=== PATIENT | female | born 1940 | race Caucasian/White ===

== ENCOUNTER 2020-02-20 09:34 | Outpatient (REF) | payer MEDICARE, SELFPAY ==
[2020-02-20 11:30] LABS: MANUAL DIFF FLAG NO
[2020-02-20 11:40] LABS: Basophils Percent Auto 0.7 % (0-2); Eosinophils Absolute Auto 0.1 X10*3/uL (0.0-0.4); Eosinophils Percent Auto 1.3 % (0-4); Hematocrit 41.4 % (37-47); Hemoglobin 14.2 g/dl (12.0-16.0); Imm Gran Abs Auto 0.02 X10*3/uL (0.00-0.03); Imm Gran Pct Auto 0.4 % (0.0-0.4); Lymphocytes Absolute Auto 1.5 X10*3/uL (1.2-4.9); Lymphocytes Percent Auto 27.5 % (20-40); Mean Corpuscular HGB Conc 34.3 g/dl (31.0-35.0); Mean Corpuscular Hemoglobin 32.1 pg (27.0-33.0); Mean Corpuscular Volume 93.7 fL (80-98); Mean Platelet Volume 10.3 fL (9.4-12.3); Monocytes Absolute Auto 0.5 X10*3/uL (0.1-1.2); Monocytes Percent Auto 8.3 % (2-11); Neutrophils Absolute Auto 3.4 X10*3/uL (2.0-8.3); Neutrophils Percent Auto 61.8 % (45-73); Platelet Count 236 X10*3/uL (160-400); Red Blood Count 4.42 X10*6/uL (4.20-5.50); Red Cell Distribution Width 12.5 % (11.0-16.0); White Blood Count 5.6 X10*3/uL (4.8-10.8)
[2020-02-20 11:53] LABS: Anion Gap 15 (12-20); Blood Urea Nitrogen 12 mg/dL (9-16); Calcium 9.1 mg/dL (8.4-10.2); Carbon Dioxide 23 mmol/L (22-29); Chloride 100 mmol/L (96-108); Estimated Glomerular Filt Rate > 60; Glucose Random 107 mg/dL (60-115); Potassium 4.3 mmol/l (3.3-5.1); Sodium 134 mmol/L (135-145)
[2020-02-20 12:18] LABS: Free T4 (Free Thyroxine) 0.72 ng/dL (0.71-1.85)
[2020-02-20 12:24] LABS: Vitamin B12 194 pg/mL (200-900)
== END 2020-02-20 09:35 | disposition home or self-care (01) ==
LOC: HO.HMGCLDS 09:34
PROVIDERS: PCP Internal Medicine; Visit Provider Internal Medicine
DX: R53.83 Other fatigue (principal); I10 Essential (primary) hypertension; J44.9 Chronic obstructive pulmonary disease, unspecified
CPT/HCPCS: 36415; 80048; 82607; 84439; 84443; 85025

== ENCOUNTER → 2020-03-02 12:39 | Outpatient (BNVA) | payer MEDICARE, SELFPAY | PROVIDERS: PCP Internal Medicine; Referring Provider Internal Medicine; Visit Provider Internal Medicine Cardiovascular Disease | DX: R53.83 Other fatigue (principal); R06.02 Shortness of breath; I25.10 Atherosclerotic heart disease of native coronary artery without angina pectoris; I10 Essential (primary) hypertension; J44.9 Chronic obstructive pulmonary disease, unspecified; E78.5 Hyperlipidemia, unspecified; Z88.8 Allergy status to other drugs, medicaments and biological substances; Z95.5 Presence of coronary angioplasty implant and graft; Z79.899 Other long term (current) drug therapy | CPT/HCPCS: 93005; 99212 ==

== ENCOUNTER 2020-03-15 10:00 | Outpatient (REF) | payer MEDICARE, SELFPAY ==
--- NOTE | 2020-03-15 | PFT_ITS ---
Forced vital capacity, FEV1, [id number] are all normal. MVV slightly decreased. Post bronchodilator therapy, there is no significant change except that MVV is also normal, due to improved effort. Total lung capacity and residual volume normal. Diffusion capacity is slightly decreased. IMPRESSION: Normal pulmonary function test except for slight decrease in diffusion capacity, which may be nonspecific. Resting O2 saturation is normal. For reduced diffusion capacity, clinical correlation is recommended. MD BEENA Staton/MODL / [id number]
== END 2020-03-15 10:01 | disposition home or self-care (01) ==
LOC: HO.RESP 10:00
PROVIDERS: PCP Internal Medicine; Visit Provider Internal Medicine
DX: R06.2 Wheezing (principal); Z77.110 Contact with and (suspected) exposure to air pollution
CPT/HCPCS: 94060; 94727; 94729

== ENCOUNTER 2020-04-13 09:56 | Outpatient (REF) | payer MEDICARE, SELFPAY ==
[2020-04-13 11:53] LABS: Free T4 (Free Thyroxine) 0.83 ng/dL (0.71-1.85); Thyroid Stimulating Hormone 1.55 uIU/mL (0.32-4.0)
== END 2020-04-13 09:57 | disposition home or self-care (01) ==
LOC: HO.HMGCLDS 09:56
PROVIDERS: PCP Internal Medicine; Visit Provider Internal Medicine
DX: E03.9 Hypothyroidism, unspecified (principal)
CPT/HCPCS: 84439; 84443

== ENCOUNTER 2020-06-01 12:05 | Outpatient (REF) | payer MEDICARE, SELFPAY ==
--- NOTE | 2020-06-01 12:11 | XR_ITS ---
EXAMINATION: XR CHEST CLINICAL INFORMATION: SOB. COMPARISON: None TECHNIQUE: 2 views of the chest were obtained. FINDINGS: The lungs are well-expanded with elevated left hemidiaphragm. The heart size and pulmonary vascularity is normal. No gross bony abnormality. XR/XR chest 2V IMPRESSION: Elevated left hemidiaphragm. The lungs are clear.
== END 2020-06-01 12:06 | disposition home or self-care (01) ==
LOC: HO.XRAY 12:05
PROVIDERS: PCP Internal Medicine; Visit Provider Internal Medicine
DX: R06.02 Shortness of breath (principal)
CPT/HCPCS: 71046

== ENCOUNTER → 2020-07-20 07:54 | Outpatient (REF) | payer MEDICARE, SELFPAY ==
--- NOTE | ~2020-07-20 | NM_ITS ---
Myocardial perfusion study Indication: Shortness of breath on exertion with prior LAD stent to evaluate for myocardial ischemia Technique: The patient was brought in for a Lexiscan perfusion study on 07/20/2020. Patient performed low-level exercise and was injected 0.4 mg of Lexiscan intravenously. Within a minute of injection, 25 mCi of sestamibi was given intravenously. Images were obtained using the SPECT gamma camera interlaced with the gating device. Images were obtained in supine position. Resting perfusion study was performed on 07/21/2020. Patient was administered 25 mCi of sestamibi intravenously at rest. Images were then obtained in supine position. Images obtained with and without CT attenuation. Total DLP 50 mGy-cm. Images were processed with the software and compared side to side in short axis, horizontal long axis and vertical long axis views. Findings: The stress perfusion study showed non attenuated images show mildly reduced uptake in the apex of the LV myocardium. Remainder of the LV myocardium is normally perfused. Attenuation corrected images show moderately reduced uptake in the apex of the LV myocardium. The gated study shows normal LV systolic function with calculated LVEF of greater than 70 %. LV cavity is normal in size. The gated study shows normal systolic wall thickening and contraction of segments. Resting study shows no change in perfusion pattern compared to stress perfusion study. Gating at rest reveals normal systolic wall motion with ejection fraction at greater than 70 %. The findings are consistent with normal myocardial perfusion. NM/NM hermes perf SPECT rest & str Impression: 1. Myocardial perfusion imaging study shows normal myocardial perfusion 2. Gated LVEF is greater than 70% 3. Transient ischemic dilatation not present EKG is nondiagnostic for ischemia
--- NOTE | 2020-07-20 08:03 | CA_ITS ---
Acquisition Time: 2020-07-20 08:16:25 Total Exercise Time: 00:02:00 Test Indications: Dyspnea Medications: ATORVASTATIN LEVOTHYROXINE LOSARTAN Protocol: LEXISCAN Max HR: 118 BPM 84% of Pred: 140 BPM Max BP: 146/088 mmHG Max Work Load: 1.0 METS Pharmacological Stress test using Lexiscan while sitting. Pt tolerated well, denies any anginal sx. EKG with isolated PVC and non-diagnostic for ischemia. Nuclear images to follow. Normotensive response to test. Test reviewed with Dr. De La Cruz Referred By: Cheko Cobb Overread By: Anastacia Higgins NP
== END ==
LOC: HO.CARD 07:54
PROVIDERS: Visit Provider Internal Medicine Cardiovascular Disease
DX: R06.02 Shortness of breath (principal); I25.10 Atherosclerotic heart disease of native coronary artery without angina pectoris
CPT/HCPCS: 78452; 93017; A9500; J0280; J2785

== ENCOUNTER → 2020-08-27 11:12 | Outpatient (BNVA) | payer MEDICARE, SELFPAY | PROVIDERS: PCP Internal Medicine; Visit Provider Internal Medicine Pulmonary Disease | DX: J98.6 Disorders of diaphragm (principal); R06.00 Dyspnea, unspecified | CPT/HCPCS: 99202 ==

== ENCOUNTER → 2020-11-09 13:46 | Outpatient (REF) | payer MEDICARE, SELFPAY ==
--- NOTE | 2020-11-09 14:00 | CA_ITS ---
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 The visually estimated ejection fraction is between 55-60%. - There is a highly mobile atrial septum noted. Interatrial shunt cannot be excluded. - There is mild calcification of the aortic valve. - There is moderate posterior mitral annular calcification. There is mild mitral valve regurgitation. Findings Left Ventricle Normal left ventricular cavity size. The left ventricular systolic function is normal. The visually estimated ejection fraction is between 55-60%. There is no evidence of regional wall motion abnormalities. E/E prime ratio is >15, consistent with elevated filling pressures. Evidence suggests grade I (mild) diastolic dysfunction. There is mild septal asymmetric hypertrophy. Right Ventricle Normal right ventricular cavity size and systolic function. Atria Both atria are normal in size. There is a highly mobile atrial septum noted. Interatrial shunt cannot be excluded. Aortic Valve There is mild calcification of the aortic valve. There is no aortic valve stenosis. There is no aortic valve regurgitation. Mitral Valve There is mild anterior mitral leaflet thickening. There is moderate posterior mitral annular calcification. There is mild mitral valve regurgitation. There is no mitral valve stenosis. Pulmonic Valve The pulmonic valve was not well visualized. Tricuspid Valve There is mild tricuspid valve regurgitation. The pulmonary artery systolic pressure is normal. Great Vessels The aortic annulus, sinuses of valsalva, and asc aorta are normal in size. Venous The inferior vena cava was not well visualized. Probably normal size. Pericardium/Pleural There is no evidence of pericardial effusion. Prior Study Comparison Changes noted compared to prior study dated: 06/27/2016. Atrial size seems normal, but this could be related to technical reasons. Measurements 2D Linear Measurements IVSd: 1.07 0.6-0.9/0.6-1.0 cm LVIDd: 3.44 3.9-5.3/4.2-5.9 cm LVIDd Index: 2.15 2.4-3.2/2.2-3.1 cm/m2 LVIDs: 2.18 2.0-3.6 cm LVPWd: 0.81 0.7-1.1 cm Ao Root: 2.80 2.1-3.5 cm LA Diam: 3.40 2.7-3.8/3.0-4.0 cm LAIDs Index: 2.13 1.5-2.3 cm/m2 LV Mass: 114.43 67-162/88-224 g LV Mass Index: 71.52 43-95/49-115 g/m2 LVOT Diam: 2.00 3.0+(-)1.3 cm 2D Systolic Function EF 4C: 58.30 >55% EF 2C: 44.00 >55% EF BiP: 51.00 >55% Mitral Valve MV Pk E: 0.59 MV PK A: 0.96 MV Decel Time: 306.00 E/A: 0.60 E'Lateral: 4.35 E'Medial: 2.94 E/E' Med: 20.00 E/E' Lat: 13.50 PHT: 90.00 MVA PHT: 2.44 Decel Providence: 1.92 Aortic Valve AoV Pk Saleem: 1.45 AoV Pk Grad: 8.00 LVOT LVOT Pk Saleem: 0.78 LVOT Mn Saleem: 0.55 LVOT VTI: 0.17 LVOT Pk Grad: 2.00 LVOT Mn Grad: 1.00 LVOT Diam: 2.00 LVOT Area: 3.14 Diastolic Function MV Pk E: 0.59 MV Pk A: 0.96 E/A: 0.60 E'Medial: 2.94 E/E' Med: 20.00 E' Laterial: 4.35 E/E' Lat: 13.50 Tricuspid Valve TR Pk Saleem: 2.35 TR Pk Grad: 22.00 RA Press: 3.00 RVSP: 25.00 Great Vessels Aorta Ao Root-2D: 2.80 2.0-3.7 cm Ao Asc: 3.40 2.1-3.4 cm Updated in Other Vendor System with Status of Final Mason De La Cruz MD electronically signed on 11/10/2020 8:46:48 AM with status of Final
== END ==
LOC: HO.CARD 13:46
PROVIDERS: Visit Provider Internal Medicine
DX: R06.02 Shortness of breath (principal); I34.0 Nonrheumatic mitral (valve) insufficiency
CPT/HCPCS: 93306

== ENCOUNTER 2020-11-18 14:53 | Outpatient (REF) | payer MEDICARE, SELFPAY ==
[2020-11-18 16:25] LABS: MANUAL DIFF FLAG NO
[2020-11-18 16:33] LABS: Basophils Absolute Auto 0.1 X10*3/uL (0.0-0.2); Basophils Percent Auto 0.8 % (0-2); Eosinophils Absolute Auto 0.1 X10*3/uL (0.0-0.4); Eosinophils Percent Auto 1.3 % (0-4); Hematocrit 39.9 % (37-47); Hemoglobin 13.8 g/dl (12.0-16.0); Imm Gran Abs Auto 0.03 X10*3/uL (0.00-0.03); Imm Gran Pct Auto 0.4 % (0.0-0.4); Lymphocytes Absolute Auto 2.1 X10*3/uL (1.2-4.9); Lymphocytes Percent Auto 26.3 % (20-40); Mean Corpuscular HGB Conc 34.6 g/dl (31.0-35.0); Mean Corpuscular Hemoglobin 32.7 pg (27.0-33.0); Mean Corpuscular Volume 94.5 fL (80-98); Mean Platelet Volume 9.5 fL (9.4-12.3); Monocytes Absolute Auto 0.6 X10*3/uL (0.1-1.2); Monocytes Percent Auto 7.7 % (2-11); Neutrophils Percent Auto 63.5 % (45-73); Platelet Count 246 X10*3/uL (160-400); Red Blood Count 4.22 X10*6/uL (4.20-5.50); Red Cell Distribution Width 12.9 % (11.0-16.0); White Blood Count 7.8 X10*3/uL (4.8-10.8)
[2020-11-18 16:47] LABS: Alanine Aminotransferase 17 U/L (0-31); Albumin Level 4.5 g/dL (3.5-5.0); Alkaline Phosphatase 82 U/L (39-117); Anion Gap 10 (12-20); Aspartate Amino Transferase 25 U/L (5-31); Bilirubin Total 0.5 mg/dL (0.0-1.0); Blood Urea Nitrogen 13 mg/dL (9-16); Calcium 9.4 mg/dL (8.4-10.2); Carbon Dioxide 27 mmol/L (22-29); Chloride 103 mmol/L (96-108); Estimated Glomerular Filt Rate > 60; Glucose Random 93 mg/dL (60-115); Potassium 4.3 mmol/L (3.3-5.1); Sodium 136 mmol/L (135-145); Total Protein 6.5 g/dL (6.5-8.0)
[2020-11-18 17:10] LABS: Free T4 (Free Thyroxine) 0.83 ng/dL (0.71-1.85)
== END 2020-11-18 14:54 | disposition home or self-care (01) ==
LOC: HO.HMGCLDS 14:53
PROVIDERS: PCP Internal Medicine; Visit Provider Internal Medicine
DX: R06.02 Shortness of breath (principal); I10 Essential (primary) hypertension; E03.9 Hypothyroidism, unspecified
CPT/HCPCS: 36415; 80053; 84439; 84443; 85025

== ENCOUNTER → 2021-03-08 10:33 | Outpatient (BNVA) | payer MEDICARE, SELFPAY | PROVIDERS: PCP Internal Medicine; Referring Provider Internal Medicine; Visit Provider Internal Medicine Cardiovascular Disease | DX: I25.10 Atherosclerotic heart disease of native coronary artery without angina pectoris (principal); R06.00 Dyspnea, unspecified | CPT/HCPCS: 93005; 99212 ==

== ENCOUNTER 2021-03-30 15:18 | Outpatient (REF) | payer MEDICARE, SELFPAY | END 2021-03-30 15:19 | disposition home or self-care (01) | LOC: HO.US 15:18 | PROVIDERS: PCP Internal Medicine; Visit Provider Internal Medicine | DX: Z13.89 Encounter for screening for other disorder (principal) ==

== ENCOUNTER 2021-04-19 14:14 | Outpatient (REF) | payer MEDICARE, SELFPAY ==
--- NOTE | ~2021-04-19 | US_ITS ---
EXAMINATION: US RETROPERITONEAL COMPLETE (RENAL) CLINICAL INFORMATION: [Back pain. Rule out left renal lesion. COMPARISON: None TECHNIQUE: Real-time imaging of the kidneys and bladder. Technically difficult study secondary to bowel gas, body habitus. FINDINGS: RIGHT KIDNEY: 9.8 x 4.8 x 4.0 cm (SAG x AP x TRV). The kidney is normal in size, contour, and echogenicity. Renal cortical thickness is normal. No calculi or focal parenchymal lesions. No hydronephrosis. LEFT KIDNEY: 9.3 x 4.2 x 4.8 cm (SAG x AP x TRV). The kidney is normal in size, contour, and echogenicity. Renal cortical thickness is normal. 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 No calculi or focal parenchymal lesions. No hydronephrosis. BLADDER: Well distended and normal. Bilateral ureteral jets are demonstrated. Prevoid bladder volume is 485 mL. Postvoid bladder volume is 220 mL. US/US retroperitoneal comp IMPRESSION: Normal renal ultrasound. Large 220 mL post void bladder residual.
== END 2021-04-19 14:15 | disposition home or self-care (01) ==
LOC: HO.US 14:14
PROVIDERS: Visit Provider Internal Medicine
DX: R06.02 Shortness of breath (principal); M54.50 Low back pain, unspecified
CPT/HCPCS: 76770

== ENCOUNTER 2021-05-27 07:01 | Outpatient (REF) | payer MEDICARE, SELFPAY ==
[2021-05-27 11:12] LABS: MANUAL DIFF FLAG NO
[2021-05-27 11:19] LABS: Basophils Absolute Auto 0.1 X10*3/uL (0.0-0.2); Basophils Percent Auto 1.1 % (0-2); Eosinophils Absolute Auto 0.1 X10*3/uL (0.0-0.4); Eosinophils Percent Auto 1.9 % (0-4); Hematocrit 41.8 % (37.0-47.0); Imm Gran Abs Auto 0.02 X10*3/uL (0.00-0.03); Imm Gran Pct Auto 0.4 % (0.0-0.4); Lymphocytes Absolute Auto 1.6 X10*3/uL (1.2-4.9); Lymphocytes Percent Auto 33.8 % (20-40); Mean Corpuscular HGB Conc 33.5 g/dl (31.0-35.0); Mean Corpuscular Volume 95.7 fL (80.0-98.0); Mean Platelet Volume 10.1 fL (9.4-12.3); Monocytes Absolute Auto 0.4 X10*3/uL (0.1-1.2); Monocytes Percent Auto 9.4 % (2-11); Neutrophils Absolute Auto 2.5 x10*3/uL (2.0-8.3); Neutrophils Percent Auto 53.4 % (45-73); Platelet Count 240 X10*3/uL (160-400); Red Blood Count 4.37 X10*6/uL (4.20-5.50); Red Cell Distribution Width 12.7 % (11.0-16.0); White Blood Count 4.7 X10*3/uL (4.8-10.8)
[2021-05-27 11:35] LABS: Alanine Aminotransferase 18 U/L (0-31); Albumin Level 4.1 g/dL (3.5-5.0); Alkaline Phosphatase 73 U/L (39-117); Anion Gap 12 (12-20); Aspartate Amino Transferase 21 U/L (5-31); Bilirubin Total 0.9 mg/dL (0.0-1.0); Blood Urea Nitrogen 15 mg/dL (9-16); Calcium 9.5 mg/dL (8.4-10.2); Carbon Dioxide 26 mmol/L (22-29); Chloride 102 mmol/L (96-108); Cholesterol 158 mg/dL; Estimated Glomerular Filt Rate > 60; Glucose Fasting 93 mg/dL (60-99); HDL Cholesterol 77 mg/dL; LDL Cholesterol Calculated 67 mg/dl; Potassium 4.6 mmol/L (3.3-5.1); Sodium 135 mmol/L (135-145); Total Protein 6.2 g/dL (6.5-8.0); Triglycerides 72 mg/dL
[2021-05-27 11:59] LABS: Thyroid Stimulating Hormone 2.39 uIU/mL (0.32-4.0)
== END 2021-05-27 07:02 | disposition home or self-care (01) ==
LOC: HO.HMGCLDS 07:01
PROVIDERS: Visit Provider Internal Medicine
DX: E03.9 Hypothyroidism, unspecified (principal); E78.00 Pure hypercholesterolemia, unspecified; I25.10 Atherosclerotic heart disease of native coronary artery without angina pectoris; I10 Essential (primary) hypertension; R06.02 Shortness of breath
CPT/HCPCS: 36415; 80053; 80061; 84439; 84443; 85025

== ENCOUNTER 2021-10-19 10:48 | Outpatient (REF) | payer MEDICARE, SELFPAY ==
[2021-10-19 13:43] LABS: MANUAL DIFF FLAG NO
[2021-10-19 13:57] LABS: Basophils Absolute Auto 0.1 X10*3/uL (0.0-0.2); Basophils Percent Auto 1.1 % (0-2); Eosinophils Absolute Auto 0.1 X10*3/uL (0.0-0.4); Eosinophils Percent Auto 1.6 % (0-4); Hematocrit 39.8 % (37.0-47.0); Hemoglobin 13.7 g/dl (12.0-16.0); Imm Gran Abs Auto 0.02 X10*3/uL (0.00-0.03); Imm Gran Pct Auto 0.3 % (0.0-0.4); Lymphocytes Absolute Auto 1.6 X10*3/uL (1.2-4.9); Lymphocytes Percent Auto 26.4 % (20-40); Mean Corpuscular HGB Conc 34.4 g/dl (31.0-35.0); Mean Corpuscular Hemoglobin 32.5 pg (27.0-33.0); Mean Corpuscular Volume 94.5 fL (80.0-98.0); Mean Platelet Volume 10.1 fL (9.4-12.3); Monocytes Absolute Auto 0.5 X10*3/uL (0.1-1.2); Monocytes Percent Auto 8.5 % (2-11); Neutrophils Absolute Auto 3.8 x10*3/uL (2.0-8.3); Neutrophils Percent Auto 62.1 % (45-73); Platelet Count 232 X10*3/uL (160-400); Red Blood Count 4.21 X10*6/uL (4.20-5.50); White Blood Count 6.1 X10*3/uL (4.8-10.8)
[2021-10-19 14:21] LABS: Alanine Aminotransferase 20 U/L (0-31); Albumin Level 4.4 g/dL (3.5-5.0); Alkaline Phosphatase 82 U/L (39-117); Anion Gap 12 (12-20); Aspartate Amino Transferase 27 U/L (5-31); Bilirubin Total 0.8 mg/dL (0.0-1.0); Blood Urea Nitrogen 15 mg/dL (9-16); Calcium 9.2 mg/dL (8.4-10.2); Carbon Dioxide 26 mmol/L (22-29); Chloride 102 mmol/L (96-108); Estimated Glomerular Filt Rate > 60; Glucose Random 101 mg/dL (60-115); Potassium 4.7 mmol/L (3.3-5.1); Sodium 135 mmol/L (135-145); Total Protein 6.4 g/dL (6.5-8.0)
[2021-10-19 14:40] LABS: Vitamin B12 343 pg/mL (200-900)
[2021-10-19 14:46] LABS: Free T4 (Free Thyroxine) 0.84 ng/dL (0.71-1.85); Thyroid Stimulating Hormone 1.46 uIU/mL (0.32-4.0)
== END 2021-10-19 10:49 | disposition home or self-care (01) ==
LOC: HO.HMGCLDS 10:48
PROVIDERS: PCP Internal Medicine; Visit Provider Internal Medicine
DX: I25.10 Atherosclerotic heart disease of native coronary artery without angina pectoris (principal); I10 Essential (primary) hypertension; E03.9 Hypothyroidism, unspecified; E53.8 Deficiency of other specified B group vitamins
CPT/HCPCS: 36415; 80053; 82607; 84439; 84443; 85025

== ENCOUNTER 2024-12-16 10:44 | Outpatient (AMB) | payer MEDICARE, SELFPAY ==
--- OUTSIDE RECORDS SUMMARY | 2024-12-13 23:59 | XMS_ITS | Continuity of Care Document ---
Author Organization [facility] Address [address] [place] [address]- Care Team Providers Care Core Carrier Name Role Phone William KENO CLERK, Jackeline Primary Care Physician Encounter [facility] Date(s): 11/13/24 - 12/13/24 [facility] [address] [place] [id number] Encounter Type: Triage Allergies, Adverse Reactions, Alerts No Known Medication Allergies Immunizations Given and Recorded Vaccine Date Status Refusal Reason influenza virus vaccine, inactivated 1 05/23/24 Gi mirella influenza virus vaccine, inactivated 2 06/11/23 Gi mirella SARS-CoV-2(COVID-19)mRNA-LNP vac([id number]) 02/20/23 Recorded [id number] 12y+ bivalent booster vax 06/08/22 Recorded Influenza Virus Vaccine (oldterm) 01/2022 Recorde d SARS-CoV-2 mRNA ([id number]-[id number]) vax 08/29/21 Recorded SARS-CoV-2 (COVID-19) mRNA BNT-162b2 vac 02/08/21 Recorded SARS-CoV-2 (COVID-19) mRNA BNT-162b2 vac 08/03/20 Recorded SARS-CoV-2 (COVID-19) mRNA BNT-162b2 vac 07/13/20 Recorded pneumococcal 23-valent vaccine 02/19/17 Recorded 1Result Comment: Flu High [facility] [id number] 2Result Comment: [id number] Medications amLODIPine 10 mg oral tablet 10 mg, 1, tablet, By Mouth, Daily, # 90 tablet, Refills 3, Tot. Refills 3, Maintenance, 11/28/24 2:54:00 PM EDT, Route to Pharmacy Electronically, [facility], Partial fill upon patient requestif the prescription is for a schedule II opioid drug., 155, cm, 11/28/24 14:15:00 EDT, Height, 59.3, kg, 05/20/24 12:35:00 EST, Dry Weight Start Date: 11/28/24 Stop Date: 11/23/25 Status: Ordered Quantity: 90.0 Unit: tablet Repeat number: 4 aspirin 81 mg oral delayed release tablet 81 mg, By Mouth, Daily, Refills 0, Maintenance, 02/15/17 9:38:07 AM EDT Start Date: 02/15/17 Status: Ordered Repeat number: 1 atorvastatin 40 mg oral tablet 1 tablet, By Mouth, Daily, # 90 tablet, 1 Refills, Maintenance, 07/12/24 10:50:00 AM EDT, [facility], 155, cm, 05/23/24 14:42:00 EST, Height, 59.3, kg, 05/20/24 12:35:00 EST, Dry Weight Start Date: 07/12/24 Status: Ordered Quantity: 90.0 Unit: tablet Repeat number: 1 carvedilol 25 mg oral tablet 1, tablet, By Mouth, 2 times a day, # 180 tablet, Refills 0, Maintenance, 11/21/24 8:39:00 AM EDT, Route to Pharmacy Electronically, [facility], 155, cm, 11/13/24 13:47:00 EDT, Height, 59.3, kg, 05/20/24 12:35:00 EST, Dry Weight Start Date: 11/21/24 Status: Ordered Quantity: 180.0 Unit: tablet Repeat number: 1 doxazosin 2 mg oral tablet 1, tablet, By Mouth, Daily, # 90 tablet, Refills 3, Maintenance, 12/09/24 8:48:00 AM EDT, Route to Pharmacy Electronically, [facility], 155, cm, 11/28/24 14:15:00 EDT, Height, 59.3, kg, 05/20/24 12:35:00 EST, Dry Weight Start Date: 12/09/24 Status: Ordered Quantity: 90.0 Unit: tablet Repeat number: 1 Flonase Allergy Relief 50 mcg/inh nasal spray = 50 mcg, Nares, Both, Daily, # 16 Gm, 0 Refills, Maintenance, 03/02/23 11:26:00 AM EDT, [id number], Partial fill upon patient request if the prescription is for a schedule II opioid drug.,154.94, cm, 03/02/23 11:04:00 EDT, Height Start Date: 03/02/23 Status: Ordered Quantity: 16.0 Unit: g Repeat number: 1 levothyroxine 0.025 mg oral tablet 1 tablet, By Mouth, Daily, # 90 tablet, 3 Refills, Maintenance, 07/25/24 8:15:00 AM EDT, [facility], 155, cm, 07/15/24 10:24:00 EDT, Height, 59.3, kg, 05/20/24 12:35:00 EST, Dry Weight Start Date: 07/25/24 Status: Ordered Quantity: 90.0 Unit: tablet Repeat number: 1 losartan 100 mg oral tablet 1 tablet, By Mouth, Daily, # 90 tablet, 3 Refills, Maintenance, 05/30/24 2:20:00 PM EST, [facility], 155, cm, 05/23/24 14:42:00 EST, Height, 59.3, kg, 05/20/24 12:35:00 EST, Dry Weight Start Date: 05/30/24 Status: Ordered Quantity: 90.0 Unit: tablet Repeat number: 4 Miscellaneous Rx 0 Refills, 90 tablet, 0 Refill(s), 11/13/24 1:46:00 PM EDT Start Date: 11/13/24 Status: Ordered Repeat number: 1 potassium chloride 20 mEq oral tablet, extended release 1 tablet = 20 mEq, By Mouth, Daily, # 30 tablet, 0 Refills, Maintenance, 05/20/24 12:45:00 PM EST, ER Tablet, Partial fill upon patient request if the prescription is for a schedule II opioid drug. Start Date: 05/20/24 Status: Ordered Quantity: 30.0 Unit: tablet Repeat number: 1 sertraline 50 mg oral tablet See Instructions, take half tablet daily in AM x 7 days, then begin taking full tablet daily, # 30 tablet, 1 Refills, Maintenance, 05/23/24 2:22:00 PM EST, Tablet, [id number], Partial fill upon patient request if the prescription is for a schedule II opioid drug., 155, cm, 05/23/24 14:10:00 EST, Height, 59.3, kg, 05/20/24 12:35:00 EST, Dry Weight Start Date: 05/23/24 Status: Ordered Quantity: 30.0 Unit: tablet Repeat number: 2 triamcinolone 0.1% topical cream 80 Gm, 0 Refill(s), APPLY 1 APPLICATION OF CREAM EXTERNALLY TWICE DAILY FOR 14 DAYS, 0 Refills, 11/13/24 1:46:00 PM EDT, Partial fill upon patient request if the prescription is for a schedule II opioid drug. Start Date: 11/13/24 Status: Ordered Repeat number: 1 Vitamin D3 2000 intl units oral capsule 1 capsule = 50 mcg, By Mouth, Daily, 0 Refills, Maintenance, 10/02/22 1:11:00 PM EDT, Partial fill upon patient request if the prescription is for a schedule II opioid drug. 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 Confirmed Active Social History Social History Type Response Smoking Status Never (less than 100 in lifetime) entered on: 05/20/24 Sex Sex Representation Female (finding) Patient Care team information Care Team Personnel Name: Jackeline Thomas NP Position: [facility] PCO Associate Professional Member Role: PCP Address: [address] [place] [id number] Telecom: Name: Yisel De Jesus RN Position: [facility] AMB Nurse Member Role: Primary Care Nurse Care Team Related Persons Name: BRIAN SIMMONS Name: KESHAWN SIMMONS Insurance Providers Guarantor name: LALO SIMMONS Health Plan Information #: 1 Payer: MEDICARE B Payer Identifier: JACQUELINE Member Number: [id number] Group Number: NA Subscriber Identifier: [id number] Relationship to Subscriber: self Coverage Type: NA Coverage Verification Date: NA Telecom: NA Address: Health Plan Information #: 2 Payer: [employer] SECONDARY ONLY Payer Identifier: JACQUELINE Member Number: [id number] Group Number: [id number] Subscriber Identifier: [id number] Relationship to Subscriber: self Coverage Type: MEDICARE Coverage Verification Date: JACQUELINE Telecom: JACQUELINE Address:
--- OUTSIDE RECORDS SUMMARY | 2024-12-16 12:11 | XMS_ITS | Encounter Summary ---
Author Organization [facility] Address [address] [place] [address] [place] [phone] Phone Care Team Providers Care Electric Motor Repair Supervisor Name Role Phone Jackeline Thomas NP Primary Care Provider [phone] Encounter Details Date Type Department Care Team (Late st Contact Info) Description 10/29/2022 Procedure Pass [facility] CT Imaging, [place] [address] [place] [address] Social History Tobacco Use Types Packs/Day Years Used Date Smoking Tobacco: Never Smokeless Tobacco: Never Education Answer Date Recorded Are you interested in more education? Not on albert e 08/26/2022 Are you concerned about learning? Not on file 08/26/2022 No 08/26/2022 No 08/26/2022 Digital Access Answer Date Recorded No 09/23/2022 No 09/23/2022 No 09/23/2022 Reliable internet access at home? Not on file 09/23/2022 Device with a working camera? Not on file Comments Unknown Sex and Gender Information Value Date Recorded Sex Assigned at Female 02/13/2023 11:15 AM EDT Legal Sex Female 9:39 AM EST Gender Identity Female 02/13/2023 11:15 AM EDT Sexual Orientation Asexual 02/13/2023 11 :15 AM EDT documented as of this encounter Plan of Treatment Not on file documented as of this encounter Visit Diagnoses Not on filedocumented in this encounter Additional Health Concerns Assessment Noted Time PHQ-2 Depression Total Score: 0 09/15/19 23 2:26 PM EDT documented as of this encounter Care Teams Electric Motor Repair Supervisor Relationship Specialty Start Date End Date Jackeline Thomas NP [address] [place] [address] PCP - General Nurse Practitioner 09/14/22 documented as of this encounter Additional Source Comments The information contained in this document represents components of the legal health record. It is not the complete legal health record.[facility]
== END 2024-12-16 10:51 | disposition home or self-care (01) ==
LOC: HO.HMGAL 10:44
PROVIDERS: PCP Internal Medicine; Visit Provider Registered Nurse Emergency
DX: J30.89 Other allergic rhinitis (principal)
CPT/HCPCS: 95117; 95165

== ENCOUNTER 2025-01-21 10:12 | Outpatient (AMB) | payer MEDICARE, SELFPAY ==
--- OUTSIDE RECORDS SUMMARY | 2025-01-21 12:29 | XMS_ITS | Encounter Summary ---
Author Organization [facility] Address [address] [place] [id number] Phone Care Team Providers Care Washer Repairman Name Role Phone Joseph Sage MD Primary Care Provider Jackeline Thomas NP Primary Care Provider [phone] Encounter Details Date Type Department Care Team (Late st Contact Info) Description 06/09/2022 Procedure Pass [facility] EKG [address] [place] [address] Social History Tobacco Use Types Packs/Day Years Used Date Smoking Tobacco: Never Smokeless Tobacco: Never Comments Unknown Sex and Gender Information Value Date Recorded Sex Assigned at Female 02/13/2023 11:15 AM EDT Legal Sex Female 9:39 AM EST Gender Identity Female 02/13/2023 11:15 AM EDT Sexual Orientation Asexual 02/13/2023 11 :15 AM EDT documented as of this encounter Plan of Treatment Not on file documented as of this encounter Visit Diagnoses Not on filedocumented in this encounter Care Teams Washer Repairman Relationship Specialty Start Date End Date Joseph Sage MD [address] [place] [address] [place] [address] PCP - General Internal Medicine 04/10/22 09/13/22 Jackeline Thomas NP [address] [place] [address] PCP - General Nurse Practitioner 09/14/22 documented as of this encounter Additional Source Comments The information contained in this document represents components of the legal health record. It is not the complete legal health record.[facility]
--- OUTSIDE RECORDS SUMMARY | 2025-01-21 12:29 | XMS_ITS | Clinical Summary ---
Author Organization [facility] Address [address] [place] [phone] Phone Care Team Providers Care Poultry Husbandry Worker Name Role Phone Jackeline Thomas NP Primary Care Provider Allergies No known active allergies Medications verapamiL (CALAN-SR) 120 MG CR tablet 2 (two) times a day. 03/21/2022 Active atorvastatin (LIPITOR) 40 MG tablet 02/26/2022 Active levothyroxine (SYNTHROID,LEVO THROID) 25 MCG tablet 02/15/2022 Active aspirin 81 MG EC tablet Take 81 mg by mouth daily. Active doxazosin (CARDURA) 2 MG tablet Take 2 mg by mouth nightly at bedtime. Active cholecalciferol (VITAMIN D3) 2,000 unit capsule Take by mouth daily. Active fluticasone propionate (FLONASE) 50 mcg/actuation nasal spray use 1 spray(s) in each nostril once daily 03/02/2023 Active losartan (COZAAR) 100 MG tablet 03/03/2023 Active Active Problems Problem Noted Date Diagnosed Date Autonomic dysfunction 04/10/2023 Hyperventilation syndrome 03/05/2023 Social History Tobacco Use Types Packs/Day Years Used Date Smoking Tobacco: Never Smokeless Tobacco: Never Tobacco Cessation:Counseling Given: Not Answered Education Answer Date Recorded Are you interested [...] Orientation Asexual 02/13/2023 11 :15 AM EDT Last Filed Vital Signs Vital Sign Reading Time Taken Comments Blood Pressure 168/94 01/23/2023 3:22 PM EDT Pulse 77 01/23/2023 3:22 PM EDT Temperature 36.1 C (97 F) 03/26/2023 2:47 PM EST Respiratory Rate 18 01/23/2023 3:22 PM EDT Oxygen Saturation 98% 01/23/2023 3:22 PM EDT Inhaled Oxygen Concentration - - Weight 59 kg (130 lb) 01/23/2023 3:22 PM EDT Height 154.9 cm (5' 1 ) 01/23/2023 3:22 PM EDT Body Mass Index 24.56 01/23/2023 3:22 PM EDT Plan of Treatment Health Maintenance Due Date Last Done Comments Adult Td,Tdap Booster 1940 ZOSTER VACCINES (1 of 2) 09/14/1989 OSTEOPOROSIS SCREENING INITIAL (ONE-TIME) 09/14/2004 RSV VACCINE (1 - 1-dose 75+ series) 09/14/2014 PNEUMOCOCCAL VACCINES (50+ years) (2 of 2 - PCV) 02/19/2018 02/19/2017 CREATININE LEVEL 2023 09/14/2022, 04/11/2022 POTASSIUM LEVEL 2023 09/14/2022, 04/11/2022 TSH LEVEL 2023 09/14/2022, 04/11/2022 DEPRESSION SCREENING 01/24/2024 01/23/2023 INFLUENZA VACCINE (#1) 2024 COVID-19 VACCINE ( season) 2024 02/20/2023, 06/08/2022, 08/29/2021, Additional history exists HEPATITIS A VACCINES Aged Out No long er eligible based on patient's age to complete this topic HIB VACCINES Aged Out No longer eligi ble based on patient's age to complete this topic MENINGOCOCCAL VACCINES (ACWY) Aged Out No longer eligible based on patient's age to complete this topic MENINGOCOCCAL VACCINES (B) Aged Out N o longer eligible based on patient's age to complete this topic Medical Devices Not on file Procedures Procedure Name Priority Date/Time Associated Diagnosis Comments TSH Routine 09/14/2022 4:37 PM EDT Dyspnea on exertion COMPREHENSIVE METABOLIC PANEL Routine 09/14/2022 4:37 PM EDT Dyspnea on exertion from Last 3 Months or Most Recently Relevant to Health Maintenance Results * (ABNORMAL) Comprehensive metabolic panel (09/14/2022 4:37 PM EDT) SODIUM 135(L) 136 - 145 mmol/L [facility] POTASSIUM 4.4 3.4 - 5.1 mmol/L [facility] CHLORIDE 100 98 - 107 mmol/L [facility] CO2 23 22 - 31 mmol/L [facility] BUN 13 6 - 23 mg/dL [facility] CREATININE 0.80 0.50 - 1.20 mg/dL [facility] GLUCOSE 96 70 - 100 mg/dL [facility] ALBUMIN 4.6 3.5 - 5.2 g/dL [facility] TOTAL PROTEIN 6.6 6.4 - 8.3 g/dL [facility] CALCIUM 9.6 8.8 - 10.7 mg/dL [facility] ALKALINE PHOSPHATASE 77 35 - 130 U/L [facility] TOTAL BILIRUBIN 0.6 0.0 - 1.0 mg/dL [facility] AST 25 10 - 50 U/L [facility] ALT 16 10 - 50 U/L [facility] GLOBULIN 2.0(L) 2.2 - 4.2 g/dL [facility] EGFR 74 >59 mL/min/1. 73m2 [facility] Comment:Estimated glomerular filtration rate calculated using the CKD-EPI refit equation. ANION GAP 12 7 - 17 mmol/L [facility] 09/14/2022 4:37 PM EDT 09/14/2022 4:57 PM EDT us Joshuamarie Ortiz MD LAB BLOOD ORDERABLES Fin al Result [facility] [address] [place] [address] * TSH (09/14/2022 4:37 PM EDT) TSH 2.11 0.50 - 5.70 uIU/mL [facility] 09/14/2022 4:37 PM EDT 09/14/2022 4:57 PM EDT Joshuamichelle Ortiz MD LAB BLOOD ORDERABLES Fin al Result Performing Organization Address [facility] Co de Phone Number [facility] [address] [place] [address] from Last 3 Months or Most Recently Relevant to Health Maintenance Insurance MEDICARE PART A & B [facility] MEDICARE SUPPLEMENT MEDICARE PART A & B [id number] [place] [address] MEDICARE SUPPLEMENT MEDICARE PART A & B [facility] MEDICARE SUPPLEMENT MEDICARE PART A & B [facility] MEDICARE SUPPLEMENT MEDICARE PART A & B [facility] MEDICARE SUPPLEMENT MEDICARE PART A & B [facility] MEDICARE SUPPLEMENT Care Teams Poultry Husbandry Worker Relationship Specialty Start Date End Date Jackeline Thomas NP [address] [place] [address] PCP - General Nurse Practitioner 09/14/22 Additional Source Comments The information contained in this document represents components of the legal health record. It is not the complete legal health record.[facility]
--- OUTSIDE RECORDS SUMMARY | 2025-01-21 12:29 | XMS_ITS | Encounter Summary ---
Author Organization [facility] Address [address] [place] [address] Phone Care Team Providers Care Client Service Representative Name Role Phone Joseph Sage MD Primary Care Provider Jackeline Thomas NP Primary Care Provider [phone] Encounter Details Date Type Department Care Team ([facility] st Contact Info) Description 04/11/2022 Procedure Pass [facility] Echocardiography [address] [place] [address] Social History Tobacco Use Types Packs/Day Years [...] on filedocumented in this encounter Care Teams Client Service Representative Relationship Specialty Start Date End Date Joseph Sage MD [address] [place] [address] [place] [address] PCP - General Internal Medicine 04/10/22 09/13/22 Jackeline Thomas NP [address] [place] [address] PCP - General Nurse Practitioner 5/18/23 documented as of this encounter Additional Source Comments The information contained in this document represents components of the legal health record. It is not the complete legal health record.[facility]
--- OUTSIDE RECORDS SUMMARY | 2025-01-21 12:29 | XMS_ITS | Encounter Summary ---
Author Organization [facility] Address [address] [place] [address] [place] [address] Phone Care Team Providers Care Well Cleaner Name Role Phone Jackeline Thomas NP Primary Care Provider Encounter Details Date Type Department Care Team (Late st Contact Info) Description 10/29/2022 Procedure Pass [facility] CT Imaging, [place] [address] [place] [address] Social History Tobacco Use Types Packs/Day Years [...] documented as of this encounter Care Teams Well Cleaner Relationship Specialty Start Date End Date Jackeline Thomas NP [address] [place] [address] PCP - General Nurse Practitioner 09/14/22 documented as of this encounter Additional Source Comments The information contained in this document represents components of the legal health record. It is not the complete legal health record.[facility]
--- OUTSIDE RECORDS SUMMARY | 2025-01-21 12:29 | XMS_ITS | Encounter Summary ---
Author Organization [facility] Address [address] [place] [address] Phone Care Team Providers Care Audio/Video Engineer Name Role Phone Jackeline Thomas NP Primary Care Provider Encounter Details Date Type Department Care Team (Late st Contact Info) Description 01/23/2023 Procedure Pass [facility] Echocardiography [address] [place] [address] Social History Tobacco Use Types Packs/Day Years [...] Noted Time PHQ-2 Depression Total Score: 0 01/24/20 23 3:22 PM EDT documented as of this encounter Care Teams Audio/Video Engineer Relationship Specialty Start Date End Date Jackeline Thomas NP [address] [place] [address] PCP - General Nurse Practitioner 09/14/22 documented as of this encounter Additional Source Comments The information contained in this document represents components of the legal health record. It is not the complete legal health record.[facility]
== END 2025-01-21 10:24 | disposition home or self-care (01) ==
LOC: HO.HMGAL 10:12
PROVIDERS: PCP Nurse Practitioner Family; Visit Provider Registered Nurse Emergency
DX: J30.89 Other allergic rhinitis (principal)
CPT/HCPCS: 95117; 95165

== ENCOUNTER 2025-02-04 10:49 | Outpatient (AMB) | payer MEDICARE, SELFPAY | END 2025-02-04 10:50 | disposition home or self-care (01) | LOC: HO.HMGAL 10:49 | PROVIDERS: PCP Nurse Practitioner Family; Visit Provider Registered Nurse Emergency | DX: J30.89 Other allergic rhinitis (principal) | CPT/HCPCS: 95117; 95165 ==

== ENCOUNTER 2025-02-25 13:39 | Outpatient (AMB) | payer MEDICARE, SELFPAY ==
--- OUTSIDE RECORDS SUMMARY | 2025-02-25 17:24 | XMS_ITS | Encounter Summary ---
Author Organization [facility] Address [address] [place] [address] Phone Care Team Providers Care Cuff Matcher Name Role Phone Jackeline Thomas NP Primary Care Provider Encounter Details Date Type Department Care Team (Late st Contact Info) Description 01/23/2023 Procedure Pass [facility] Echocardiography [address] [place] [address] Social History Tobacco Use Types Packs/Day Years [...] documented as of this encounter Care Teams Cuff Matcher Relationship Specialty Start Date End Date Jackeline Thomas NP [address] [place] [address] PCP - General Nurse Practitioner 09/14/22 documented as of this encounter Additional Source Comments The information contained in this document represents components of the legal health record. It is not the complete legal health record.[facility]
--- OUTSIDE RECORDS SUMMARY | 2025-02-25 17:24 | XMS_ITS | Encounter Summary ---
Author Organization [facility] Address [address] [place] [address] Phone Care Team Providers Care Ship Construction Teacher Name Role Phone Joseph Sage MD Primary Care Provider Jackeline Thomas NP Primary Care Provider [phone] Encounter Details Date Type Department Care Team (Late st Contact Info) Description 06/09/2022 Procedure Pass [facility] EKG [address] [place] [address] Social History Tobacco Use Types Packs/Day Years [...] on filedocumented in this encounter Care Teams Ship Construction Teacher Relationship Specialty Start Date End Date Joseph Sage MD [address] [place] [address] [place] [address] PCP - General Internal Medicine 04/10/22 09/13/22 Jackeline Thomas NP [address] [place] [address] PCP - General Nurse Practitioner 09/14/22 documented as of this encounter Additional Source Comments The information contained in this document represents components of the legal health record. It is not the complete legal health record.[facility]
--- OUTSIDE RECORDS SUMMARY | 2025-02-25 17:24 | XMS_ITS | Encounter Summary ---
Author Organization [facility] Address [address] [place] [address] Phone Care Team Providers Care Inspector Repairer Sandstone Name Role Phone Joseph Sage MD Primary Care Provider Jackeline Thomas NP Primary Care Provider [phone] Encounter Details Date Type Department Care Team ([facility] st Contact Info) Description 04/11/2022 Procedure Pass [facility] Echocardiography [address] [place] [address] Social History Tobacco Use Types Packs/Day Years [...] on filedocumented in this encounter Care Teams Inspector Repairer Sandstone Relationship Specialty Start Date End Date Joseph Sage MD [address] [place] [address] [place] [address] PCP - General Internal Medicine 04/10/22 09/13/22 Jackeline Thomas NP [address] [place] [address] PCP - General Nurse Practitioner 5/18/23 documented as of this encounter Additional Source Comments The information contained in this document represents components of the legal health record. It is not the complete legal health record.[facility]
--- OUTSIDE RECORDS SUMMARY | 2025-02-25 17:24 | XMS_ITS | Encounter Summary ---
Author Organization [facility] Address [address] [place] [address] [place] [address] Phone Care Team Providers Care Academic Program Specialist Name Role Phone Jackeline Thomas NP Primary Care Provider Encounter Details Date Type Department Care Team (Late st Contact Info) Description 10/29/2022 Procedure Pass [facility] CT Imaging, [place] [address] [place] [address] Social History Tobacco Use Types Packs/Day Years [...] documented as of this encounter Care Teams Academic Program Specialist Relationship Specialty Start Date End Date Jackeline Thomas NP [address] [place] [address] PCP - General Nurse Practitioner 09/14/22 documented as of this encounter Additional Source Comments The information contained in this document represents components of the legal health record. It is not the complete legal health record.[facility]
--- OUTSIDE RECORDS SUMMARY | 2025-02-25 17:24 | XMS_ITS | Clinical Summary ---
Author Organization [facility] Address [address] [place] [address] Phone Care Team Providers Care Fish Hatchery Laborer Name Role Phone Jackeline Thomas NP Primary [...] EDT) SODIUM 135(L) 136 - 145 mmol/L [facility] POTASSIUM 4.4 3.4 - 5.1 mmol/L [facility] CHLORIDE 100 98 - 107 mmol/L [facility] CO2 23 22 - 31 mmol/L [facility] BUN 13 6 - 23 mg/dL [facility] CREATININE 0.80 0.50 - 1.20 mg/dL [facility] GLUCOSE 96 70 - 100 mg/dL [facility] ALBUMIN 4.6 3.5 - 5.2 g/dL [facility] TOTAL PROTEIN 6.6 6.4 - 8.3 g/dL [facility] CALCIUM 9.6 8.8 - 10.7 mg/dL [facility] ALKALINE PHOSPHATASE 77 35 - 130 U/L [facility] TOTAL BILIRUBIN 0.6 0.0 - 1.0 mg/dL [facility] AST 25 10 - 50 U/L [facility] ALT 16 10 - 50 U/L [facility] GLOBULIN 2.0(L) 2.2 - 4.2 g/dL [facility] EGFR 74 >59 mL/min/1. 73m2 [facility] Comment:Estimated glomerular filtration rate calculated using the CKD-EPI refit equation. ANION GAP 12 7 - 17 mmol/L [facility] 09/14/2022 4:37 PM EDT 09/14/2022 4:57 PM EDT us Joshuamarie Ortiz MD LAB BLOOD ORDERABLES Fin al Result [facility] [address] [place] [address] * TSH (09/14/2022 4:37 PM EDT) TSH 2.11 0.50 - 5.70 uIU/mL [facility] 09/14/2022 4:37 PM EDT 09/14/2022 4:57 PM EDT Joshuamichelle Ortiz MD LAB BLOOD ORDERABLES Fin al Result Performing Organization Address [facility] Co de Phone Number [facility] [address] [place] [address] from Last 3 Months or Most Recently Relevant to Health Maintenance Insurance MEDICARE PART A & B [facility] MEDICARE SUPPLEMENT MEDICARE PART A & B MEDICARE SUPPLEMENT MEDICARE PART A & B Member Subscriber Plan / Payer (Ef fective 2004-Present) Name:Daksha Farrell Member ID:[id number] Relation to Subscriber:Self Name:Daksha Farrell Subscriber ID:[id number] Payer ID:[id number] Group ID:Not on file Type:Medicare Address: [employer] [address] [place] [id number] [place] [address] MEDICARE SUPPLEMENT MEDICARE PART A & B [facility] MEDICARE SUPPLEMENT MEDICARE PART A & B [facility] [place] [address] MEDICARE PART A & B [facility] MEDICARE SUPPLEMENT Care Teams Fish Hatchery Laborer Relationship Specialty Start Date End Date Jackeline Thomas NP [address] [place] [address] PCP - General Nurse Practitioner 09/14/22 Additional Source Comments The information contained in this document represents components of the legal health record. It is not the complete legal health record.[facility]
== END 2025-02-25 13:43 | disposition home or self-care (01) ==
LOC: HO.HMGAL 13:39
PROVIDERS: PCP Nurse Practitioner Family; Visit Provider Registered Nurse Emergency
DX: J30.89 Other allergic rhinitis (principal)
CPT/HCPCS: 95117; 95165

== ENCOUNTER 2025-03-11 10:44 | Outpatient (AMB) | payer MEDICARE, SELFPAY ==
--- OUTSIDE RECORDS SUMMARY | 2025-03-05 23:59 | XMS_ITS | Continuity of Care Document ---
Author Organization [facility] Adult Address [address] [place] [address]- Care Team Providers Care Inorganic Chemistry Professor Name Role Phone William ROUGE PRESSER, Jackeline Primary Care Physician [phone] Encounter [facility] [place] Date(s): 02/03/25 - 03/05/25 [facility] [address] [place], [place] [address] Encounter Type: Triage Allergies, Adverse Reactions, Alerts No Known Allergies Immunizations Given and Recorded Vaccine Date Status Refusal Reason influenza virus vaccine, inactivated 1 05/23/24 Gi mirella influenza virus vaccine, inactivated 2 06/11/23 Gi mirella SARS-CoV-2(COVID-19)mRNA-LNP vac([id number]) 02/20/23 Recorded [id number] 12y+ bivalent booster vax 06/08/22 Recorded Influenza Virus Vaccine (oldterm) 01/2022 Recorde d SARS-CoV-2 mRNA ([id number]) vax 08/29/21 Recorded SARS-CoV-2 (COVID-19) mRNA BNT-162b2 vac 02/08/21 Recorded SARS-CoV-2 (COVID-19) mRNA BNT-162b2 vac 08/03/20 Recorded SARS-CoV-2 (COVID-19) mRNA BNT-162b2 vac 07/13/20 Recorded pneumococcal 23-valent vaccine 02/19/17 Recorded 1Result Comment: Flu High [facility] 01735-152-94 2Result Comment: [id number] Medications aspirin 81 mg oral delayed release tablet 81 mg, By Mouth, Daily, Refills 0, Maintenance, 02/15/17 9:38:07 AM EDT Start Date: 02/15/17 Status: Ordered Medication Dispense Status: Completed Total Allowed Fills: 1 Fills Dispensed: 0 atorvastatin 40 mg oral tablet 1 tablet, By Mouth, Daily, # 90 tablet, 1 Refills, Maintenance, 07/12/24 10:50:00 AM EDT, [facility], 155, cm, 05/23/24 14:42:00 EST, Height, 59.3, kg, 05/20/24 12:35:00 EST, Dry Weight Start Date: 07/12/24 Status: Ordered Medication Dispense Status: Completed Quantity: 90.0 Unit: tablet Total Allowed Fills: 1 Fills Dispensed: 0 Atorvastatin Calcium 40 MG Oral Tablet Atorvastatin Calcium 40 MG Oral Tablet, 1, tablet, By Mouth, Daily, # 90 tablet, 1 Refills, Maintenance, 12/23/24 5:49:00 AM EDT, 155, cm, 11/28/24 14:15:00 EDT, Height, 59.3, kg, 05/20/24 12:35:00 EST, Dry Weight Start Date: 12/23/24 Status: Ordered Medication Dispense Status: Completed Quantity: 90.0 Unit: tablet Total Allowed Fills: 1 Fills Dispensed: 0 carvedilol 25 mg oral tablet 1, tablet, By Mouth, 2 times a day, # 180 tablet, Refills 3, Tot. Refills 3, Maintenance, 02/27/25 7:49:00 AM EDT, Route to Pharmacy Electronically, [facility], 155, cm, 02/17/25 11:47:00 EDT, Height, 59.3, kg, 05/20/24 12:35:00 EST, Dry Weight Start Date: 02/27/25 Status: Ordered Medication Dispense Status: Completed Quantity: 180.0 Unit: tablet Total Allowed Fills: 4 Fills Dispensed: 0 Compression Stockings See Instructions, # 1 pack/packet, Maintenance, surgical, calf length 15-20 mm Hg, 01/07/25 6:21:00 PM EDT, Supply, 155, cm, 01/07/25 17:32:00 EDT, Height, 59.3, kg, 05/20/24 12:35:00 EST, Dry Weight Start Date: 01/07/25 Status: Ordered Medication Dispense Status: Completed Quantity: 1.0 Unit: pack/packet Total Allowed Fills: 1 Fills Dispensed: 0 doxazosin 2 mg oral tablet 1, tablet, By Mouth, Daily, # 90 tablet, Refills 3, Maintenance, 12/09/24 8:48:00 AM EDT, Route to Pharmacy Electronically, [facility], 155, cm, 11/28/24 14:15:00 EDT, Height, 59.3, kg, 05/20/24 12:35:00 EST, Dry Weight Start Date: 12/09/24 Status: Ordered Medication Dispense Status: Completed Quantity: 90.0 Unit: tablet Total Allowed Fills: 1 Fills Dispensed: 0 Flonase Allergy Relief 50 mcg/inh nasal spray = 50 mcg, Nares, Both, Daily, # 16 Gm, 0 Refills, Maintenance, 03/02/23 11:26:00 AM EDT, [id number], Partial fill upon patient request if the prescription is for a schedule II opioid drug.,154.94, cm, 03/02/23 11:04:00 EDT, Height Start Date: 03/02/23 Status: Ordered Medication Dispense Status: Completed Quantity: 16.0 Unit: g Total Allowed Fills: 1 Fills Dispensed: 0 levothyroxine 0.025 mg oral tablet 1 tablet, By Mouth, Daily, # 90 tablet, 3 Refills, Maintenance, 07/25/24 8:15:00 AM EDT, [facility], 155, cm, 07/15/24 10:24:00 EDT, Height, 59.3, kg, 05/20/24 12:35:00 EST, Dry Weight Start Date: 07/25/24 Status: Ordered Medication Dispense Status: Completed Quantity: 90.0 Unit: tablet Total Allowed Fills: 1 Fills Dispensed: 0 losartan 100 mg oral tablet 1 tablet, By Mouth, Daily, # 90 tablet, 3 Refills, Maintenance, 05/30/24 2:20:00 PM EST, [facility], 155, cm, 05/23/24 14:42:00 EST, Height, 59.3, kg, 05/20/24 12:35:00 EST, Dry Weight Start Date: 05/30/24 Status: Ordered Medication Dispense Status: Completed Quantity: 90.0 Unit: tablet Total Allowed Fills: 4 Fills Dispensed: 0 Miscellaneous Rx 0 Refills, 90 tablet, 0 Refill(s), 11/13/24 1:46:00 PM EDT Start Date: 11/13/24 Status: Ordered Medication Dispense Status: Completed Total Allowed Fills: 1 Fills Dispensed: 0 potassium chloride 20 mEq oral tablet, extended release 1 tablet = 20 mEq, By Mouth, Daily, # 30 tablet, 0 Refills, Maintenance, 05/20/24 12:45:00 PM EST, ER Tablet, Partial fill upon patient request if the prescription is for a schedule II opioid drug. Start Date: 05/20/24 Status: Ordered Medication Dispense Status: Completed Quantity: 30.0 Unit: tablet Total Allowed Fills: 1 Fills Dispensed: 0 triamcinolone 0.1% topical cream 80 Gm, 0 Refill(s), APPLY 1 APPLICATION OF CREAM EXTERNALLY TWICE DAILY FOR 14 DAYS, 0 Refills, 11/13/24 1:46:00 PM EDT, Partial fill upon patient request if the prescription is for a schedule II opioid drug. Start Date: 11/13/24 Status: Ordered Medication Dispense Status: Completed Total Allowed Fills: 1 Fills Dispensed: 0 Vitamin D3 2000 intl units oral capsule 1 capsule = 50 mcg, By Mouth, Daily, 0 Refills, Maintenance, 10/02/22 1:11:00 PM EDT, Partial fill upon patient request if the prescription is for a schedule II opioid drug. 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 Social History Social History Type Response Smoking Status Never (less than 100 in lifetime) entered on: 05/20/24 Sexual Orientation Self described orien tation: ; Straight or heterosexual Sex Sex Representation Female (finding) Patient Care team information Care Team Personnel Name: Jackeline Thomas NP Position: S PCO Associate Professional Member Role: PCP Address: [address] [place] [address] [address] [place] [address]- Telecom: Name: Yisel De Jesus RN Position: [facility] AMB Nurse Member Role: Primary Care Nurse Care Team Related Persons Name: BRIAN SIMMONS Name: KESHAWN SIMMONS Insurance Providers Guarantor name: LALO SIMMONS Health Plan Information #: 1 Payer: MEDICARE B Payer Identifier: Member Number: [id number] Group Number: Subscriber Identifier: Relationship to Subscriber: self Coverage Type: NA Coverage Verification Date: NA Telecom: NA Address: NA Health Plan Information #: 2 Payer: AARP SECONDARY ONLY Payer Identifier: Member Number: [id number] Group Number: Subscriber Identifier: Relationship to Subscriber: self Coverage Type: MEDICARE Coverage Verification Date: NA Telecom: Address: NA
--- OUTSIDE RECORDS SUMMARY | 2025-03-07 23:59 | XMS_ITS | Continuity of Care Document ---
Author Organization [facility] Address [address] [place] [address]- Care Team Providers Care Patrol Police Sergeant Name Role Phone William [employer]BER, Jackeline Primary Care Physician Encounter [facility] [place] Date(s): 02/05/25 - 03/07/25 [facility] [address] [place], [place] [address] Encounter Type: Triage Allergies, Adverse Reactions, Alerts No Known Allergies Immunizations Given and Recorded Vaccine Date Status Refusal Reason influenza virus vaccine, inactivated 1 05/23/24 Gi mirella influenza virus vaccine, inactivated 2 06/11/23 Gi mirella SARS-CoV-2(COVID-19)mRNA-LNP vac([id number]) 02/20/23 Recorded [id number] 12y+ bivalent booster vax 06/08/22 Recorded Influenza Virus Vaccine (oldterm) 01/2022 Recorde d SARS-CoV-2 mRNA ([id number]) vax 08/29/21 Recorded SARS-CoV-2 (COVID-19) mRNA BNT-162b2 vac 02/08/21 Recorded SARS-CoV-2 (COVID-19) mRNA BNT-162b2 vac 08/03/20 Recorded SARS-CoV-2 (COVID-19) mRNA BNT-162b2 vac 07/13/20 Recorded pneumococcal 23-valent vaccine 02/19/17 Recorded 1Result Comment: Flu High [facility] 58691-730-86 2Result Comment: [id number] Medications aspirin 81 mg oral delayed release [...] 0 Refills, Maintenance, 03/02/23 11:26:00 AM EDT, [id number], Partial fill upon patient request [...] PCO Associate Professional Member Role: PCP Address: [address] [place] [address] [address] [place] [address]- Telecom: Name: Yisel De Jesus RN Position: [facility] AMB Nurse Member Role: Primary Care Nurse Care Team Related Persons Name: BRIAN SIMMONS Name: KESHAWN SIMMONS Insurance Providers Guarantor name: LALO SIMMONS Health Plan Information #: 1 Payer: MEDICARE B Payer Identifier: Member Number: [id number] Group Number: Subscriber Identifier: Relationship to Subscriber: self Coverage Type: NA Coverage Verification Date: NA Telecom: NA Address: NA Health Plan Information #: 2 Payer: AARP SECONDARY ONLY Payer Identifier: Member Number: [id number] Group Number: Subscriber Identifier: Relationship to Subscriber: self Coverage Type: MEDICARE Coverage Verification Date: NA Telecom: Address: NA
--- OUTSIDE RECORDS SUMMARY | 2025-03-11 12:55 | XMS_ITS | Encounter Summary ---
Author Organization [facility] Address [address] [place] [address] [place] [address] Phone Care Team Providers Care Circus Train Supervisor Name Role Phone Jackeline Thomas NP Primary Care Provider Encounter Details Date Type Department Care Team (Late st Contact Info) Description 10/29/2022 Procedure Pass [facility] CT Imaging, [place] [address] [place] [address] Social History Tobacco Use Types Packs/Day Years [...] documented as of this encounter Care Teams Circus Train Supervisor Relationship Specialty Start Date End Date Jackeline Thomas NP [address] [place] [address] PCP - General Nurse Practitioner 09/14/22 documented as of this encounter Additional Source Comments The information contained in this document represents components of the legal health record. It is not the complete legal health record.[facility]
--- OUTSIDE RECORDS SUMMARY | 2025-03-11 12:56 | XMS_ITS | Encounter Summary ---
Author Organization [facility] Address [address] [place] [address] Phone Care Team Providers Care Toy Parts Former Supervisor Name Role Phone Jackeline Thomas NP Primary Care Provider Encounter Details Date Type Department Care Team (Late st Contact Info) Description 01/23/2023 Procedure Pass [facility] Echocardiography [address] [place] [address] Social History Tobacco Use Types Packs/Day Years [...] documented as of this encounter Care Teams Toy Parts Former Supervisor Relationship Specialty Start Date End Date Jackeline Thomas NP [address] [place] [address] PCP - General Nurse Practitioner 09/14/22 documented as of this encounter Additional Source Comments The information contained in this document represents components of the legal health record. It is not the complete legal health record.[facility]
--- OUTSIDE RECORDS SUMMARY | 2025-03-11 12:56 | XMS_ITS | Clinical Summary ---
Author Organization [facility] Address [address] [place] [address] Phone Care Team Providers Care Caterer Helper Name Role Phone Jackeline Thomas NP Primary Care Provider [phone] Allergies No known active allergies Medications verapamiL [...] on patient's age to complete this topic IPV VACCINES Aged Out No longer eligi ble based on patient's age to complete this topic MENINGOCOCCAL VACCINES (ACWY) Aged Out No longer eligible based on patient's age to complete this topic MENINGOCOCCAL VACCINES (B) Aged Out N o longer eligible based on patient's age to complete this topic Medical Devices Not on file Procedures Procedure Name Priority Date/Time Associated Diagnosis Comments THYROID STIMULATING HORMONE (TSH) Routine 09/14/2022 4:37 PM EDT Dyspnea on exertion COMPREHENSIVE METABOLIC PANEL (CMP) Routine 09/14/2022 4:37 PM EDT Dyspnea on exertion from Last 3 Months or Most Recently Relevant to Health Maintenance Results * (ABNORMAL) Comprehensive metabolic panel (09/14/2022 4:37 PM EDT) SODIUM 135(L) 136 - 145 mmol/L [facility] POTASSIUM 4.4 3.4 - 5.1 mmol/L [facility] CHLORIDE 100 98 - 107 mmol/L [facility] CO2 23 22 - 31 mmol/L [facility] BUN 13 6 - 23 mg/dL [facility] CREATININE 0.80 0.50 - 1.20 mg/dL [facility] GLUCOSE 96 70 - 100 mg/dL [facility] ALBUMIN 4.6 3.5 - 5.2 g/dL [facility] TOTAL PROTEIN 6.6 6.4 - 8.3 g/dL [facility] CALCIUM 9.6 8.8 - 10.7 mg/dL [facility] ALKALINE PHOSPHATASE 77 35 - 130 U/L [facility] TOTAL BILIRUBIN 0.6 0.0 - 1.0 mg/dL [facility] AST 25 10 - 50 U/L [facility] ALT 16 10 - 50 U/L [facility] GLOBULIN 2.0(L) 2.2 - 4.2 g/dL [facility] EGFR 74 >59 mL/min/1. 73m2 [facility] Comment:Estimated glomerular filtration rate calculated using the CKD-EPI refit equation. ANION GAP 12 7 - 17 mmol/L [facility] 09/14/2022 4:37 PM EDT 09/14/2022 4:57 PM EDT us Joshua Ortiz MD LAB BLOOD BKR ORDERABLES Final Result [facility] [address] [place] [address] * TSH (09/14/2022 4:37 PM EDT) TSH 2.11 0.50 - 5.70 uIU/mL [facility] 09/14/2022 4:37 PM EDT 09/14/2022 4:57 PM EDT Joshua Ortiz MD LAB BLOOD BKR ORDERABLES Final Result Performing Organization Address [facility] Co de Phone Number [facility] [address] [place] [address] from Last 3 Months or Most Recently Relevant to Health Maintenance Insurance [place] [id number] [facility] MEDICARE SUPPLEMENT MEDICARE PART A & B Member Subscriber Plan / Payer (Ef fective 2004-Present) Name:Daksha Farrell Member ID:[id number] Relation to Subscriber:Self Name:Daksha Farrell Subscriber ID:[id number] Payer ID:[id number] Group ID:Not on file Type:Medicare Address: [employer] [address] [place] [address] MEDICARE SUPPLEMENT MEDICARE PART A & [place] [address] [place] [address] MEDICARE SUPPLEMENT MEDICARE PART A & B [facility] MEDICARE SUPPLEMENT MEDICARE PART A & B [facility] [place] [address] MEDICARE PART A & B [facility] MEDICARE SUPPLEMENT Care Teams Caterer Helper Relationship Specialty Start Date End Date Jackeline Thomas NP [address] [place] [address] PCP - General Nurse Practitioner 09/14/22 Additional Source Comments The information contained in this document represents components of the legal health record. It is not the complete legal health record.[facility]
--- OUTSIDE RECORDS SUMMARY | 2025-03-11 12:56 | XMS_ITS | Encounter Summary ---
Author Organization [facility] Address [address] [place] [address] Phone Care Team Providers Care Room Cooler Installer Name Role Phone Joseph Sage MD Primary Care Provider Jackeline Thomas NP Primary Care Provider [phone] Encounter Details Date Type Department Care Team (Late st Contact Info) Description 06/09/2022 Procedure Pass [facility] EKG [address] [place] [address] Social History Tobacco Use Types Packs/Day Years [...] on filedocumented in this encounter Care Teams Room Cooler Installer Relationship Specialty Start Date End Date Joseph Sage MD [address] [place] [address] [place] [address] PCP - General Internal Medicine 04/10/22 09/13/22 Jackeline Thomas NP [address] [place] [address] PCP - General Nurse Practitioner 09/14/22 documented as of this encounter Additional Source Comments The information contained in this document represents components of the legal health record. It is not the complete legal health record.[facility]
--- OUTSIDE RECORDS SUMMARY | 2025-03-11 12:57 | XMS_ITS | Encounter Summary ---
Author Organization [facility] Address [address] [place] [address] Phone Care Team Providers Care New Account Interviewer Name Role Phone Joseph Sage MD Primary Care Provider Jackeline Thomas NP Primary Care Provider [phone] Encounter Details Date Type Department Care Team ([facility] st Contact Info) Description 04/11/[address] [facility] Echocardiography [address] [place] [address] Social History Tobacco Use Types Packs/Day Years [...] on filedocumented in this encounter Care Teams New Account Interviewer Relationship Specialty Start Date End Date Joseph Sage MD [address] [place] [address] [place] [address] PCP - General Internal Medicine 04/10/22 09/13/22 Jackeline Thomas NP [address] [place] [address] PCP - General Nurse Practitioner 5/18/23 documented as of this encounter Additional Source Comments The information contained in this document represents components of the legal health record. It is not the complete legal health record.[facility]
== END 2025-03-11 10:44 | disposition home or self-care (01) ==
LOC: HO.HMGAL 10:44
PROVIDERS: PCP Nurse Practitioner Family; Visit Provider Registered Nurse Emergency
DX: J30.89 Other allergic rhinitis (principal)
CPT/HCPCS: 95117; 95165

== ENCOUNTER 2025-04-08 10:01 | Outpatient (AMB) | payer MEDICARE, SELFPAY | END 2025-04-08 10:01 | disposition home or self-care (01) | LOC: HO.HMGAL 10:01 | PROVIDERS: PCP Nurse Practitioner Family; Visit Provider Registered Nurse Emergency | DX: J30.89 Other allergic rhinitis (principal) | CPT/HCPCS: 95117; 95165 ==